=== PATIENT | male | born 1985 | race Caucasian/White ===

== ENCOUNTER 2017-10-08 07:39 | Emergency (ER) | payer OTHER ==
[2017-10-08 07:48] VITALS: BP 142/78
[2017-10-08] MEDS ORDERED: IBUPROFEN 800 MG TABLET PO STA (08:11)
--- NOTE | 2017-10-08 08:41 | XRAY Report ---
EXAM: CHEST RADIOGRAPHY EXAM DATE: 10/08/2017 08:34 AM. CLINICAL HISTORY: Productive cough. COMPARISON: None. TECHNIQUE: 2 views. FINDINGS: Lungs/Pleura: No focal opacities evident. No pleural effusion. No pneumothorax. Normal volumes. Mediastinum: Heart and mediastinal contours are unremarkable. Other: None. IMPRESSION: Normal 2-view chest radiography. [facility] Referring Provider Line: [phone] SITE ID: [id number]
--- NOTE | 2017-10-08 08:41 | XRAY Preliminary Report ---
Exam: XR CHEST 2 VIEW X-RAY IMPRESSION: Normal 2-view chest radiography. [facility] SITE ID: [id number]
--- NOTE | 2017-10-08 08:45 | ED Physician Documentation ---
PD HPI URI - Stated complaint Stated Complaint: FLU LIKE SX - Chief complaint Chief Complaint: Resp - History obtained from History obtained from: Patient - History of Present Illness Timing - onset: How many weeks ago (1-2) Timing details: Gradual onset Associated symptoms: Chills, Sore throat, Dry cough - Additional information Additional information: The patient is a 32-year-old male who presents with generalized myalgias, chills , headache, sore throat, nonproductive cough, and heartburn, that has been ongoing for at least one week. He denies abdominal pain, nausea, or vomiting. 2 weeks ago he had aching and has right groin and testicle, and underwent outpatient ultrasound which was negative. Review of Systems Constitutional: reports: Chills, Myalgias, Fatigue. denies: Fever Eyes: denies: Irritation Ears: denies: Ear pain Nose: reports: Congestion Throat: reports: Sore throat Cardiac: denies: Chest pain / pressure Respiratory: reports: Cough. denies: Dyspnea GI: reports: Abdominal Pain ("Heartburn"). denies: Nausea, Vomiting : denies: Dysuria Skin: denies: Rash Musculoskeletal: denies: Back pain Neurologic: reports: Headache PD PAST MEDICAL HISTORY - Past Medical History Cardiovascular: None Respiratory: None Endocrine/Autoimmune: None - Present Medications Home Medications: Ambulatory Orders Medication Instructions Recorded Confirmed Benzonatate [Tessalon Perle] 100 mg PO BID #14 capsule 10/08/17 - Allergies Allergies/Adverse Reactions: Allergies Allergy/AdvReac Type Severity Reaction Status Date / Time No Known Drug Allergies Allergy Verified 10/08/17 07:48 - Social History Does the pt smoke?: No - Immunizations Immunizations are current?: Yes PD ED PE NORMAL - Vitals Vital signs reviewed: Yes (Borderline hypertension initially.) - General General: Alert and oriented X 3, Well developed/nourished - HEENT HEENT: Atraumatic, Ears normal, Pharynx benign - Neck Neck: Supple, no meningeal sign, No JVD, Other (Mildly enlarged anterior cervical nodes bilaterally.) - Cardiac Cardiac: RRR, No murmur - Respiratory Respiratory: No respiratory distress, Clear bilaterally - Abdomen Abdomen: Soft, Non tender - Back Back: No CVA TTP - Derm Derm: No rash - Extremities Extremities: No edema, No calf tenderness / cord - Neuro Neuro: Alert and oriented X 3, No motor deficit, Normal speech Results - Vitals Vitals: Oxygen O2 Source Room air - Rads (name of study) CXR Radiology: Prelim report reviewed, EMP read contemporaneously, See rad report ( Normal 2 view chest radiography.) PD MEDICAL DECISION MAKING - ED course Complexity details: reviewed results, re-evaluated patient, considered differential, d/w patient ED course: The patient's presentation is most consistent with acute viral upper respiratory infection. His presentation does not suggest pneumonia, peritonsillar abscess, or meningitis. Chest x-ray reveals no evidence of infiltrate or effusion. Treatment in the emergency department included administration of ibuprofen 800 mg orally. He is being discharged with a prescription for Tessalon Perles. I discussed with him the expected course of illness, symptomatic treatment and outpatient follow-up, as well as potentially worrisome signs or symptoms that should prompt reevaluation in the emergency department. Departure - Departure Disposition: 01 Home, Self Care Clinical Impression: Viral URI with cough Condition: Stable Instructions: ED Upper Resp Infec No Abx Tx Follow-Up: Greg Leslie MD [Primary Care Provider] - Prescriptions: Benzonatate [Tessalon Perle] 100 mg PO BID #14 capsule Comments: You can use Tylenol or ibuprofen if needed for fever or achiness. You can use Tessalon as prescribed as needed for cough. Follow up with your primary physician within 2 weeks. Call to schedule appointment. Return to the emergency department if increasing difficulty breathing, or otherwise worsening symptoms. Discharge Date/Time: 10/08/17 08:59
== END 2017-10-08 08:59 | disposition home or self-care (01) ==
LOC: ED 07:39
DX: J06.9 Acute upper respiratory infection, unspecified (principal); B97.89 Other viral agents as the cause of diseases classified elsewhere
CPT/HCPCS: 71046; 99283; A9270